=== PATIENT | female | born 1995 | race Caucasian/White ===

== ENCOUNTER 2016-08-20 14:53 | Emergency (ER) | payer SELFPAY ==
[~2016-08-20] VITALS: Ht 167.6 cm; Wt 65.7 kg
[2016-08-20 14:54] VITALS: BP 114/71
[2016-08-20 15:43] LABS: PATH.CAST-FLAG NOT PRESENT; SPERM-FLAG NOT PRESENT; SRC-FLAG NOT PRESENT; XTAL-FLAG NOT PRESENT; YLC-FLAG NOT PRESENT
[2016-08-20] MEDS ORDERED: MORPHINE SULFATE 4 MG/ML, 1ML ONE (15:49)
[2016-08-20] MEDS ORDERED: ONDANSETRON 2MG/ML, 2ML ONE (15:50)
[2016-08-20 15:51] LABS: BLOOD UREA NITROGEN 7 mg/dL (7-18)
[2016-08-20 15:57] LABS: ASPARTATE AMINO TRANSFERASE 14 U/L (15-37)
[2016-08-20] MEDS ORDERED: SODIUM CHLORIDE 0.9% 1,000ML IVBOLUS ONE (16:00)
[2016-08-20] MEDS ORDERED: MORPHINE SULFATE 4 MG/ML, 1ML IVPush PRN (16:00)
[2016-08-20] MEDS ORDERED: SODIUM CHLORIDE FLUSH 10ML SYR IVF ONE (16:00)
[2016-08-20] MEDS ORDERED: ONDANSETRON 2MG/ML, 2ML IVPush ONE (16:00)
== END 2016-08-20 16:52 | disposition home or self-care (01) ==
LOC: ED 15:40
DX: R10.11 Right upper quadrant pain (principal); G89.29 Other chronic pain; R11.0 Nausea
CPT/HCPCS: 36415; 76700; 80053; 81001; 83690; 84703; 85025; 87077; 87086; 87186; 99285